=== PATIENT | male | born 1945 | race Caucasian/White ===

== ENCOUNTER 2018-07-31 22:32 | Inpatient (IN) ==
[2018-07-31 23:07] LABS: Basophils % 0.5 % (0.0-0.8); Eosinophils # 0.2 10*3/uL (0.0-0.87); Eosinophils % 2.1 % (0.00-10.9); Hemoglobin 11.9 GM/DL (14.0-18.0); Immature Granulocytes % 0.2 %; Immature Granulocytes Absolute 0.02 #; Lymphocytes # 2.2 10*3/uL (1.4-4.0); Lymphocytes % 26.5 % (21.2-54.2); Mean Corpuscular HGB Conc 31.3 GM/DL (32-36); Mean Corpuscular Volume 91.3 FL (87-102); Mean Platelet Volume 10.5 FL (9.6-12.0); Monocytes % 7.4 % (1.7-12.7); Neutrophils % 63.3 % (38.7-73.9); Platelet Count 192 T/CUMM (130-400); Red Blood Count 4.16 MC/CUMM (3.8-5.5); Red Cell Distribution Width 14.7 % (9.3-17.3); White Blood Count 8.4 T/CUMM (4-12)
[2018-07-31 23:15] LABS: PT Patient Result 10.7 SECS; Partial Thromboplastin Time 26.2 SECS (0-40)
[2018-07-31 23:38] LABS: Apearance,Urine CLEAR (Clear); Bacteria,Urine Occasional /HPF (Few); Bilirubin,Urine Negative (Negative); Blood, Urine Negative (Negative); Glucose,Urine (UA) 50 mg/dL (Negative); Hyaline Casts,Urine 1 /LPF (0-3); Ketones,Urine Negative (Negative); Mucus,Urine Occasional /LPF (Occasional); Nitrite,Urine Negative (Negative); Protein,Urine 30 MG/DL; RBC,Urine <1 /HPF (0-4); Squamous Epithelial Cell,Urine Occasional /HPF (0-10); Urine Color Yellow (Yellow); Urine Specific Gravity 1.012 (1.001-1.035); Urine Urobilinogen < 2.0 EU/DL (0.2-1.0); WBC,Urine 1 /HPF (0-6)
[2018-08-01 01:05] LABS: Alanine Aminotransferase 13 U/L (16-61); Albumin 3.5 G/DL (3.4-5.0); Alkaline Phosphatase 78 U/L (45-117); Aspartate Amino Transferase 13 U/L (0-37); Blood Urea Nitrogen 35 MG/DL (7-18); Calcium 8.9 MG/DL (8.5-10.1); Glucose 194 MG/DL (74-106); Osmolality,Calculated 293.3 MOS/KG (273-304); Total Protein 6.8 G/DL (6.4-8.3); Troponin I < 0.015 NG/ML (0.00-0.045)
[2018-08-01 01:30] LABS: Barbiturates Screen,Urine Negative (Negative); Benzodiazepines Screen,Urine Negative (Negative); Cannabinoid Screen,Urine Negative (Negative); Opiate Screen,Urine Negative (Negative); Phencyclidine Screen,Urine Negative (Negative)
[2018-08-01] MEDS ORDERED: GLUCAGON 1 MG VIAL IM PRN (03:45)
[2018-08-01] MEDS ORDERED: ACETAMINOPHEN 650 MG SUPP RECTAL PRN (03:45)
[2018-08-01] MEDS ORDERED: ALBUTEROL/IPRATROPIUM 3 ML NEB RESP TX PRN (03:45)
[2018-08-01] MEDS ORDERED: DEXTROSE 50% 25 GM/50 ML VIAL IV PRN (03:45)
[2018-08-01] MEDS ORDERED: ONDANSETRON 4 MG/2 ML VIAL IV PRN (03:45)
[2018-08-01] MEDS: SODIUM CHLORIDE 0.9% 1,000 ML IV SCH ×2 (04:45→18:14)
[2018-08-01] MEDS: INSULIN LISPRO 100 UNIT/ML SUBCUT SCH ×3 (05:16→18:11)
[2018-08-01 05:23] LABS: Basophils % 0.2 % (0.0-0.8); Eosinophils # 0.2 10*3/uL (0.0-0.87); Eosinophils % 1.7 % (0.00-10.9); Hematocrit 39.4 VOL% (42.0-52.0); Hemoglobin 12.1 GM/DL (14.0-18.0); Immature Granulocytes % 0.4 %; Immature Granulocytes Absolute 0.04 #; Lymphocytes # 1.7 10*3/uL (1.4-4.0); Lymphocytes % 18.7 % (21.2-54.2); Mean Corpuscular HGB Conc 30.7 GM/DL (32-36); Mean Corpuscular Volume 92.1 FL (87-102); Mean Platelet Volume 10.6 FL (9.6-12.0); Monocytes % 6.9 % (1.7-12.7); Neutrophils % 72.1 % (38.7-73.9); Platelet Count 189 T/CUMM (130-400); Red Blood Count 4.28 MC/CUMM (3.8-5.5); Red Cell Distribution Width 14.6 % (9.3-17.3); White Blood Count 9.2 T/CUMM (4-12)
[2018-08-01 05:50] LABS: Calcium 9.3 MG/DL (8.5-10.1); Osmolality,Calculated 296.1 MOS/KG (273-304)
[2018-08-01 06:09] LABS: Risk Ratio 4.11; VLDL CHOLESTEROL 15.8 MG/DL
[2018-08-01] MEDS ORDERED: ENOXAPARIN 40 MG/0.4 ML SYRINGE SUBCUT SCH (09:00)
[2018-08-01] MEDS: ASPIRIN 300 MG SUPP RECTAL SCH (10:20)
[2018-08-01] MEDS: APIXABAN 2.5 MG TABLET PO SCH ×2 (14:59→22:19)
[2018-08-01] MEDS: ROSUVASTATIN 10 MG TABLET PO SCH (22:19)
[2018-08-02] MEDS: INSULIN LISPRO 100 UNIT/ML SUBCUT SCH ×4 (01:12→17:33)
[2018-08-02] MEDS: SODIUM CHLORIDE 0.9% 1,000 ML IV SCH (07:41)
[2018-08-02] MEDS: APIXABAN 2.5 MG TABLET PO SCH ×2 (09:20→21:49)
[2018-08-02] MEDS: ASPIRIN 300 MG SUPP RECTAL SCH (09:20)
[2018-08-02] MEDS: ROSUVASTATIN 10 MG TABLET PO SCH (21:49)
[2018-08-02] MEDS: DESITIN 4OZ/NYSTATIN 15 GRAM MIXTURE PASTE TOP SCH (21:50)
[2018-08-03] MEDS: SODIUM CHLORIDE 0.9% 1,000 ML IV SCH ×2 (00:21→10:36)
[2018-08-03] MEDS: INSULIN LISPRO 100 UNIT/ML SUBCUT SCH ×4 (01:10→18:15)
[2018-08-03 05:21] LABS: Basophils % 0.4 % (0.0-0.8); Eosinophils # 0.2 10*3/uL (0.0-0.87); Eosinophils % 2.4 % (0.00-10.9); Hemoglobin 10.5 GM/DL (14.0-18.0); Immature Granulocytes % 0.3 %; Immature Granulocytes Absolute 0.02 #; Lymphocytes # 1.7 10*3/uL (1.4-4.0); Lymphocytes % 21.9 % (21.2-54.2); Mean Corpuscular Volume 94.6 FL (87-102); Mean Platelet Volume 10.4 FL (9.6-12.0); Monocytes % 9.6 % (1.7-12.7); Neutrophils % 65.4 % (38.7-73.9); Platelet Count 157 T/CUMM (130-400); Red Cell Distribution Width 14.4 % (9.3-17.3); White Blood Count 7.8 T/CUMM (4-12)
[2018-08-03 05:54] LABS: Calcium 8.8 MG/DL (8.5-10.1); Osmolality,Calculated 307.3 MOS/KG (273-304)
[2018-08-03 06:00] LABS: Prealbumin 15.6 MG/DL (20-40)
[2018-08-03] MEDS: DESITIN 4OZ/NYSTATIN 15 GRAM MIXTURE PASTE TOP SCH ×2 (10:35→20:29)
[2018-08-03] MEDS: ASPIRIN 300 MG SUPP RECTAL SCH (10:35)
[2018-08-03] MEDS: APIXABAN 2.5 MG TABLET PO SCH (10:35)
[2018-08-03] MEDS ORDERED: INSULIN GLARGINE 100 UNIT/ML SUBCUT SCH (17:00)
[2018-08-03] MEDS: ENOXAPARIN 80 MG/0.8 ML SYRINGE SUBCUT SCH (20:27)
[2018-08-03] MEDS ORDERED: ROSUVASTATIN 20 MG TABLET PO SCH (21:00)
[2018-08-04] MEDS: INSULIN LISPRO 100 UNIT/ML SUBCUT SCH ×2 (00:25→05:46)
[2018-08-04 07:18] LABS: Basophils % 0.4 % (0.0-0.8); Eosinophils # 0.1 10*3/uL (0.0-0.87); Eosinophils % 1.7 % (0.00-10.9); Hematocrit 34.1 VOL% (42.0-52.0); Hemoglobin 10.6 GM/DL (14.0-18.0); Immature Granulocytes % 0.4 %; Immature Granulocytes Absolute 0.03 #; Lymphocytes # 1.2 10*3/uL (1.4-4.0); Lymphocytes % 14.6 % (21.2-54.2); Mean Corpuscular HGB Conc 31.1 GM/DL (32-36); Mean Corpuscular Volume 92.9 FL (87-102); Mean Platelet Volume 10.1 FL (9.6-12.0); Monocytes % 8.8 % (1.7-12.7); Neutrophils % 74.1 % (38.7-73.9); Platelet Count 167 T/CUMM (130-400); Red Blood Count 3.67 MC/CUMM (3.8-5.5); Red Cell Distribution Width 14.6 % (9.3-17.3); White Blood Count 8.3 T/CUMM (4-12)
[2018-08-04 07:41] LABS: Calcium 9.2 MG/DL (8.5-10.1); Osmolality,Calculated 306.6 MOS/KG (273-304)
[2018-08-04] MEDS ORDERED: ALBUTEROL/IPRATROPIUM 3 ML NEB RESP TX ONE (07:57)
[2018-08-04] MEDS ORDERED: LORazepam 2 MG/1 ML VIAL IV PRN (09:33)
[2018-08-04] MEDS ORDERED: SCOPOLAMINE 1.5 MG PATCH TRANSDERM ONE (09:33)
[2018-08-04] MEDS ORDERED: MORPHINE 4 MG/1 ML VIAL IV PRN (09:33)
[2018-08-04] MEDS: ASPIRIN 300 MG SUPP RECTAL SCH (09:47)
[2018-08-04] MEDS: ENOXAPARIN 80 MG/0.8 ML SYRINGE SUBCUT SCH (09:48)
[2018-08-04] MEDS ORDERED: fentaNYL 25 MCG/HR PATCH TRANSDERM SCH (10:00)
[2018-08-04] MEDS: DESITIN 4OZ/NYSTATIN 15 GRAM MIXTURE PASTE TOP SCH (10:08)
[2018-08-04 12:37] VITALS: BP 147/55
[2018-08-04] MEDS ORDERED: ALBUTEROL/IPRATROPIUM 3 ML NEB RESP TX SCH (13:00)
== END 2018-08-04 13:50 | DRG 64 ==
LOC: N.ED 22:32 → N.EDINP 22:32 → SUATTDRO 08-01 02:03 → N.5E 08-01 03:27
PROVIDERS: ADMIT Internal Medicine; ATTEND Internal Medicine